=== PATIENT | female | born 1955 | race Caucasian/White ===

== ENCOUNTER → 2017-11-10 | Outpatient (CLI) | payer BC, OTHER ==
[~2017-11-10] VITALS: Ht 162.6 cm; Wt 81.6 kg
[~2017-11-10] MED LIST: ASPIRIN325 PO; GABAPENTIN 100100 MG PO; GABAPENTIN100 MG PO; HYDROCHLOROTHIA25 M2 PO; NEURONTIN 300300 M1 PO; NEURONTIN100 MG PO; QUINAPRIL HCL40 MG PO; TOPROL XL200 MG PO; VERAPAMIL E.R240 M1 PO; VERAPAMIL ER180 MG PO; VITAMIN D5000 UNIT PO; ZETIA10 MG PO
--- NOTE | ~2017-11-10 | HPC ---
[facility] [address] [place] [address] PAIN MANAGEMENT CONSULTATION Name: SARBJIT LIAO [id number] Admission: 11/10/17 Attend Phys: Alejandra Mosley MD Discharge: Date of : 51 Report #: [id number] THIS REPORT FOR: //name// CC: Jenny Oliveira MD DATE OF SERVICE: 11/10/2017 FOLLOWUP COMPLAINT: The pain has improved with the medication, but I am still having some areas of over right ankle. 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 It involves her right ankle. As you may recall, she has been having this pain since 2016. It involves her right ankle. Notes that light touch had been problematic. She notes that since starting gabapentin that there is some change in her discomfort. It was a 5. She rates it as a 2-3 at this juncture. It involves the top of her foot where her cuff of her pants rub and this area is hypersensitive to touch. Sleeps without covers touch this area. She continues to be active. She is having no complications from the gabapentin. She was taking 300 mg initially. She felt that this caused her to feel a little bit "drunk and awkward." Decreasing the dose to 100 mg tablets has been more efficacious. ALLERGIES: No known drug allergies. MEDICATIONS: 1. Gabapentin 100 mg tablets 1 p.o. t.i.d. to b.i.d. 2. Vitamin D. 3. Aspirin 325 mg. 4. Zetia 10 mg. 5. Quinapril 40 mg. 6. Verapamil 180 mg. 7. Hydrochlorothiazide 25 mg. PHYSICAL EXAMINATION: VITAL SIGNS: Blood pressure 155/88, pulse 89, respiratory rate is 16, room air saturations 100, height 5 feet 4 inches, weight 180 pounds, BMI is 30. The patient has not fallen since we saw her last. GENERAL: The patient is well developed, in no acute distress. HEENT: Head: Normocephalic, atraumatic. Eyes: Nonicteric. Ears: Grossly normal hearing. Nose: No deformities or discharge. EXTREMITIES: The patient notes some continued hyperesthesia involving the anterior portion of her right ankle on the top. This [place] [address] PAIN MANAGEMENT CONSULTATION Name: SARBJIT LIAO [facility] [id number] Admission: 11/10/17 Attend Phys: Alejandra Mosley MD Discharge: Date of : 53 Report #: [id number] sensitive than prior to starting her medications. IMPRESSION: 1. Probable complex regional pain syndrome and balls in the right foot and ankle -- improving. 2. Hypertension. 3. Osteoarthritis of her hands. RECOMMENDATIONS: We discussed treatment options with the patient. We will continue to use gabapentin. We will increase this as she is able to tolerate it. We explained that she should not have feelings of being confused, drunk or any complications with it. We should slowly titrate the dose over a longer period of time. The patient will continue with his current medical regimen. A script for her medications has been rewritten. She will follow up in the near future. We hope she continues to improve. <ELECTRONICALLY SIGNED> By: Alejandra Mosley MD 11/26/17 1332 [id number] Alejandra Mosley MD /[facility]
[2017-11-10 08:30] VITALS: BP 155/88
== END ==
LOC: PAIN 06:18
DX: M25.571 Pain in right ankle and joints of right foot (principal); I10 Essential (primary) hypertension; M19.042 Primary osteoarthritis, left hand; M19.041 Primary osteoarthritis, right hand

== ENCOUNTER → 2018-01-14 | Outpatient (CLI) | payer BC, OTHER ==
[~2018-01-14] VITALS: Ht 134.6 cm; Wt 79.7 kg
[~2018-01-14] MED LIST changes: -GABAPENTIN 100100 MG PO; -GABAPENTIN100 MG PO; -TOPROL XL200 MG PO; -VERAPAMIL E.R240 M1 PO
--- NOTE | ~2018-01-14 | HPC ---
[facility] [address] [place] [address] PAIN MANAGEMENT CONSULTATION Name: SARBJIT LIAO Room #: REG [facility].#: [id number] Admission: 01/14/18 Attend Phys: Alejandra Mosley MD Discharge: Date of : 53 Report #: [id number] THIS REPORT FOR: //name// CC: Jenny Oliveira MD DATE OF SERVICE: 01/14/2018 FOLLOWUP COMPLAINT: "The pain is better and is not as widespread on my ankle." FOLLOWUP HISTORY: The patient is a 62-year-old female who has been seen in the pain clinic because of pain and discomfort involving her right ankle. There is some question as to whether or not she has been having problems with reflex sympathetic dystrophy. With her current use of gabapentin, she has noticed a decreasing area of discomfort. Some of the light allodynia type touch has improved. She has had no complications from use of her current medication regimen. She thinks that there is still some sensation to "mechanical stimulation of this." Overall, things are going reasonably well and she rates it as a 1/10. She feels that the current medical regimen is working reasonably well and would like to continue that dose. ALLERGIES: No known drug allergies. REVIEW OF MEDICATIONS: Gabapentin 100 mg 1 p.o. t.i.d. to b.i.d., vitamin D, aspirin 325 mg, Zetia 10 mg, quinapril 40 mg, verapamil 180 mg, hydrochlorothiazide 25 mg. PAIN CLINIC ASSESSMENT: 1. History of osteoarthritis. The patient is not being treated for osteoarthritis or rheumatoid arthritis. Discomfort in her hands. 2. GENERAL: Height 5 feet 4 inches, weight 175 pounds, BMI 44. 3. VITAL SIGNS: Blood pressure 155/72, pulse 82, respiratory rate 16, room air saturation 97%. 4. Pain intensity 11/03. 5. Fall risk. The patient has not fallen in the last 3 months. 6. Blood thinner. The patient is not on a blood thinner 7. History of hypertension. The patient is not being treated for hypertension. 10. Opioid therapy. The patient is not receiving opioid therapy on a regular basis. 11. Risk assessment tool. 12. Functional assessment tool. 13. Recreational drug use. Denies recreational drug use. 14. Tobacco: The patient denies use of tobacco. She has never smoked. 15. Alcohol use. The patient does on occasion use of alcoholic drink and [address] [address] PAIN MANAGEMENT CONSULTATION Name: SARBJIT LIAO Room #: REG CLI [facility]#: [id number] Admission: 01/14/18 Attend Phys: Alejandra Mosley MD Discharge: Date of : 53 Report #: [id number] alcoholic beverage. PHYSICAL EXAMINATION: GENERAL: The patient is a well-developed, well-nourished white female. She appears her stated age. Alert and oriented x 3. Affect is appropriate. HEENT: Normocephalic, atraumatic. Extraocular eye muscles intact. No complaints of nasal problems. NECK: Without adenopathy or JVD. HEART: Regular rate. ABDOMEN: Nontender. Upper extremity judged to be 5/5 for the major upper muscles in the upper extremity. [employer] strength is 5/5. MUSCULOSKELETAL: Normal without significant scoliosis, kyphosis or lordosis, low back area muscles and lower extremity judged to be 5/5 for the major muscle groups with symmetry. No neurological changes. The patient does have pain and discomfort in the dorsum of her right foot. This has been improving. The area of irritation has decreased. Does note some increased pain with mechanical stimulation, but less so with light touch to the affected area. IMPRESSION: 1. Complex regional pain syndrome, has decreased in the right foot with use of current medical regimen of gabapentin. 2. Hypertension. 3. Osteoarthritis in her hands. RECOMMENDATIONS: We discussed treatment options with the patient. At this juncture, things are going reasonably well. We will continue with the gabapentin medication. She will call us if she has any problems with it. She feels overall that things are going reasonably well. She is able to accomplish activities of daily living without significant problems. She rates her pain as a 1/10. Overall, I think things are going reasonably well and she will call us if she has any concerns. <ELECTRONICALLY SIGNED> By: Alejandra Mosley MD 01/26/18 0816 [id number] Alejandra Mosley MD /[facility]
[2018-01-14 08:37] VITALS: BP 155/72
== END ==
LOC: PAIN 06:51
DX: I10 Essential (primary) hypertension (principal); G90.521 Complex regional pain syndrome I of right lower limb; M19.042 Primary osteoarthritis, left hand; M19.041 Primary osteoarthritis, right hand

== ENCOUNTER → 2018-08-31 | Outpatient (CLI) | payer BC, OTHER ==
[~2018-08-31] VITALS: Ht 162.6 cm; Wt 81.6 kg
[~2018-08-31] MED LIST changes: +GABAPENTIN 100100 MG PO; +GABAPENTIN100 MG PO; +TOPROL XL200 MG PO; +VERAPAMIL E.R240 M1 PO
--- NOTE | ~2018-08-31 | HPC ---
[facility] [address] [place] [address] PAIN MANAGEMENT CONSULTATION Name: SARBJIT LIAO Room #: REG [facility] Camryn#: [id number] Admission: 08/31/18 Attend Phys: Kristine Hunter Discharge: Date of : 53 Report #: [id number] THIS REPORT FOR: //name// CC: Kristine CRUZ DATE OF SERVICE: 08/31/2018 CHIEF COMPLAINT: Complex regional pain syndrome in her right foot. HISTORY OF PRESENT ILLNESS: This is a very pleasant 62-year-old female who has been seen in the pain clinic in the past for pain and discomfort in her right ankle. She has been diagnosed in the past with reflex sympathetic dystrophy. She does use current dose of gabapentin 100 mg tablets, she takes 1 in the morning and 2 at night. She tells me that that significantly does help her right ankle pain. She tells me since we have last seen her that she is now able to tolerate shoes on her right ankle, leg and some sheets do not bother her as much, certain fabric does still bother her at night and sometimes has difficulty sleeping as a result of this. The patient does have an AFO brace on her right foot currently. She tells me her pain score today is a 5/10, worse with walking, swelling or sitting too long. It is achy sensation. She tells me that she recently had the flu and was unable to take any of her medicines for about 2 days and her pain had increased during that time. Usually, it is better controlled than her current 5/10. She returns today for followup for just her medications. ALLERGIES: HYDROCODONE. CURRENT MEDICATIONS: Toprol 200 daily, verapamil 240 mg daily, gabapentin 100 mg tablets 3 tablets a day, vitamin D3, aspirin 325 daily, Zetia 10 mg daily, quinapril 40 mg daily, hydrochlorothiazide 25 mg daily. The patient's PQRS: 1. The patient has a history of osteoarthritis in her lower extremities and denies rheumatoid arthritis. 2. Height is 5 feet 4 inches, weight 180, BMI is 30.9. 3. Vital signs, blood pressure 168/81, pulse 69, respiratory rate 16 and oxygen sat is 98%. 4. Pain score is 5/10. 5. Fall risk. Denies dizziness. Does not need help walking or standing and has not fallen in the last 3 months. 6. No blood thinners. Does have a history of hypertension. 7. Her opioid therapy is negative. She does not take narcotics. 8. The patient's risk assessment tool is low. Her functional assessment is [address] [address] PAIN MANAGEMENT CONSULTATION Name: SARBJIT LIAO Lorna [facility] [id number] Admission: 08/31/18 Attend Phys: Kristine Hunter Discharge: Date of : 51 Report #: [id number] 50/70. 9. Recreational drug use. The patient denies. She is not a smoker and occasionally drinks alcohol. We did check [place] [facility], but the patient is not on any opioids, so they were negative. OBJECTIVE: GENERAL: The patient is a well-developed, well-nourished white female, appears her stated age. Alert and orientated. Affect is appropriate. HEENT: Normocephalic, atraumatic. Extraocular eye muscles are intact. NECK: Without adenopathy or JVD. ABDOMEN: Nontender. MUSCULOSKELETAL: Upper extremity judged to be 5/5 in upper muscle groups in her upper extremities. She is negative for scoliosis, kyphosis or lordosis. Her lower extremity strength judged to be 5/5 on the left, 4/5 on the right. Does have some discomfort in her dorsum of her right foot, is improving. Less sensitive to light touch in her right foot. Does have some light allodynia that has decreased. IMPRESSION: 1. Complex regional pain syndrome of the right lower extremity. 2. Hypertension. 3. Osteoarthritis. PLAN: 1. The patient returns to the pain clinic today for refill of her gabapentin. The patient tells me that she is very well controlled, taking 1 tablet in the morning and 2 tablets around 9:00 p.m. at night. The patient does not complain of any daytime cognitive issues now that she is stabilized on her Neurontin dose. The patient would like a refill. I talked to the patient about a 90-day refill, which her pharmacy does fill. We have elected to give her Neurontin 100 mg capsules 3 times a day, quantity #270 with 1 additional refill. 2. The patient can follow up with our office again in 6 months' time. It was discussed with her that if her primary care doctor is willing to write for this medicine that she can get refills from her. 3. The patient is seen in collaboration with Dr. Jorge Mosley. <ELECTRONICALLY SIGNED> By: Kristine Hunter 09/01/18 0716 [id number] [id number] Kristine Hunter /jacki
[2018-08-31 08:18] VITALS: BP 168/81
== END ==
LOC: PAIN 06:57
DX: G90.50 Complex regional pain syndrome I, unspecified (principal); I10 Essential (primary) hypertension; M19.90 Unspecified osteoarthritis, unspecified site

== ENCOUNTER → 2018-12-13 | Outpatient (CLI) | payer OTHER ==
[~2018-12-13] VITALS: Ht 162.6 cm; Wt 82.6 kg
[2018-12-13 09:26] VITALS: BP 146/87
--- NOTE | 2018-12-13 09:38 | NUR ---
Pain Clinic Assessment: 1. History of Osteoarthritis: B/L HANDS LEFT TOES B/L ANKLES B/L KNEES History of Rheumatoid Arthritis: Not Applicable 2. Height: 5 ft. 4 in. 162.6 cm. Weight: 182.0 lb. oz. 82.555 kg. Patient's BMI: 31.2 3. Vital Signs: BP: 146/87 Pulse: 65 Resp: 20 Temp: 02 Sat: 98 ECG Mon: 4. Pain Intensity: 0-AT REST,3-WALKING 5. Fall Risk: Dizziness: N Needs help standing or walking: N Fallen in the last 3 months: N Fall risk comments: 6. Patient on Blood Thinner: None 7. History of Hypertension: Y 8. Opioid Therapy greater than 6 weeks: N Opiate Contract Signed: 9. Risk Assessment Tool Provided: GABY 10. Functional Assessment Tool: 50 11. Recreational Drug Use: Never Drug Type: Tobacco Use: Never Smoker Tobacco Type: Amount or Packs/day: How Many Years: Alcohol Use: Yes Frequency: Monthly Quant: 1
--- NOTE | 2018-12-15 14:14 | HPC ---
[facility] [address] [place] [address] PAIN MANAGEMENT CONSULTATION Name: SARBJIT LIAO [facility]: [facility] [id number] Admission: 12/13/18 ������������������ Attend Phys: Kristine Hunter Discharge: ������������������ Date of : 51 Report #: [id number] THIS REPORT FOR: //name// CC: Kristine Myrick DATE OF SERVICE: 12/13/2018 CHIEF COMPLAINT: Complex regional pain syndrome in her right foot. HISTORY OF PRESENT ILLNESS: This is a very pleasant 63-year-old female who has been seen in the pain clinic in the past for pain in her right ankle. She was diagnosed in the past with reflex sympathetic dystrophy. She currently takes gabapentin 100 mg tablet; she takes 1 in the morning and 2 at night. She tells me that she has been doing really well on this medication. Her pain is 0 today at rest and 3/10 when she is walking. She does wear ASO brace on her ankle when she is walking. The patient does complain of some swelling in her feet bilaterally. The patient does not think it has to do with her medications. She thinks that is more related to weather changes. She tells me that she is doing reasonably well with this medication and would like to continue it. ALLERGIES: HYDROCODONE. CURRENT MEDICATIONS: Gabapentin 100 mg in the a.m. and 2 at night, Toprol-XL 200 mg daily, verapamil ER 240 mg daily, vitamin D3 daily, aspirin 325 mg daily, Zetia 10 mg daily, quinapril 40 mg daily, hydrochlorothiazide 25 mg daily. PQRS: 1. She has a history of osteoarthritis in her lower extremities and in her bilateral hands. Denies rheumatoid arthritis. 2. Height is 5 feet 4 inches, weight is 182. BMI is 31. 3. Vital signs: Blood pressure 146/87, pulse is 65, respirations 20, oxygen sat is 98%. 4. Pain score 0/10 at rest, 3/10 at walking. 5. Fall risk. She denies dizziness. Does not need help walking or standing, has not fallen in the last 3 months. 6. The patient is not on any blood thinners. She does have a history of hypertension. 7. Opioid therapy is greater than 6 weeks. Now she does not take opioids from us. Her risk assessment tool is low. Her functional assessment is 50/70. 8. Recreational drug use, she denies. She is not a smoker and occasionally drink alcohol. We did check the prescription monitoring system. The patient does not fill narcotics from us. She did fill a narcotic a year ago. The patient tells me she does safeguard her medications. PHYSICAL EXAMINATION: [facility] [address] [place] [address] PAIN MANAGEMENT CONSULTATION Name: SARBJIT LIAO Lorna Room #: REG [facility]#: [id number] Admission: 12/13/18 ������������������ Attend Phys: Kristine Hunter Discharge: ������������������ Date of : 51 Report #: [id number] GENERAL: This is a well-developed, well-nourished white female, who appears her stated age. She is alert and orientated and affect is appropriate. HEENT: Normocephalic, atraumatic. Extraocular eye muscles are intact. Mucous membranes are moist. NECK: Without adenopathy or JVD. MUSCULOSKELETAL: Upper extremity strength judged to be 5/5 in all major muscle groups. She is negative for scoliosis, lordosis or kyphosis. She complains of some discomfort in her right foot today, is minimal since she has not been walking, does have some light allodynia that is present on her right foot as well. Lower extremity strength judged to be 5/5 in lower muscle groups in her lower extremities. IMPRESSION: 1. Complex regional pain syndrome of her right lower extremity. 2. Hypertension. 3. Osteoarthritis. PLAN: 1. We discussed treatment options with the patient today. She tells me she is very well controlled with her gabapentin. She takes one tablet in the morning and 2 in the evening for a quantity of 3 tablets a day. She tells me that she is very stable on this medicine and we elected to give her a 90-day supply, quantity 270 with 3 additional refills. This is 1 year supply. At that time, she may follow up with Dr. Jorge Mosley for an appointment here or she may get this medication from her primary care doctor. 2. We discussed if she does have increase in her symptoms or her pain changes, then she could return on as needed basis to us and we will make adjustments as needed. The patient verbalizes understanding of this. 4. The patient is seen in collaboration today with Dr. Isaak Gallardo and he saw pt as well today. ��������������������������������������������� <ELECTRONICALLY SIGNED> ���������������������������������������� By: Kristine Hunter ��������������������������������������������� 12/15/18 1414 1045 1824 Kristine Hunter /jacki
== END ==
LOC: PAIN 06:47
DX: M79.671 Pain in right foot (principal); G89.4 Chronic pain syndrome; I10 Essential (primary) hypertension; M19.90 Unspecified osteoarthritis, unspecified site; Z88.8 Allergy status to other drugs, medicaments and biological substances; Z79.899 Other long term (current) drug therapy

== ENCOUNTER → 2019-08-11 | Outpatient (CLI) | payer OTHER ==
[~2019-08-11] VITALS: Ht 162.6 cm; Wt 85.3 kg
[~2019-08-11] MED LIST changes: +NEURONTIN300 MG PO
[2019-08-11 08:12] VITALS: BP 152/87
--- NOTE | 2019-08-11 08:21 | NUR ---
Pain Clinic Assessment: 1. History of Osteoarthritis: B/L HANDS LEFT TOES B/L ANKLES B/L KNEES History of Rheumatoid Arthritis: Not Applicable 2. Height: 5 ft. 4 in. 162.6 cm. Weight: 188.0 lb. oz. 85.276 kg. Patient's BMI: 32.3 3. Vital Signs: BP: 152/87 Pulse: 70 Resp: 16 Temp: 02 Sat: 97 ECG Mon: 4. Pain Intensity: 2 5. Fall Risk: Dizziness: N Needs help standing or walking: N Fallen in the last 3 months: N Fall risk comments: 6. Patient on Blood Thinner: None 7. History of Hypertension: Y 8. Opioid Therapy greater than 6 weeks: N Opiate Contract Signed: 9. Risk Assessment Tool Provided: GABY 10. Functional Assessment Tool: 11. Recreational Drug Use: Never Drug Type: Tobacco Use: Never Smoker Tobacco Type: Amount or Packs/day: How Many Years: Alcohol Use: Yes Frequency: Quant:
--- NOTE | 2019-08-14 08:18 | HPC ---
[facility] [address] [place] [address] PAIN MANAGEMENT CONSULTATION Name: SARBJIT LIAO Lorna Room #: REG [facility] Camryn#: [id number] Admission: 08/11/19 Attend Phys: Kristine Hunter Discharge: Date of : 51 Report #: [id number] THIS REPORT FOR: //name// CC: Kristine Myrick DATE OF SERVICE: 08/11/2019 CHIEF COMPLAINT: Complex regional pain syndrome of her right foot. HISTORY OF PRESENT ILLNESS: This is a very pleasant 63-year-old female who returns to the pain clinic today for refill of her gabapentin that she uses to help treat her complex regional pain syndrome of her right foot. She explains to me that her pain score is 2/10. Recently, she had increased her gabapentin with some previous 300 mg tablets that she had at home and feels that is beneficial in helping her sleep better at night and helping her pain be better controlled. She continues to 100 mg of Neurontin in the morning. She would like refills of this dose of gabapentin. She feels that most of her pain is worse with walking and at bedtime that wearing a brace as well as resting and using her medication are very helpful. The patient tells me she has been having some issues with her left knee and has been going to physical therapy and trying to do the exercises at home. She does travel quite a bit, so she is not able to complete a full course of physical therapy, but is trying to be as active as possible with her exercises. ALLERGIES: HYDROCODONE. CURRENT LIST OF MEDICATIONS: Gabapentin 100 mg in the morning, gabapentin 300 mg at night, Toprol-XL 200 mg daily, verapamil 240 mg daily, vitamin D, aspirin, Zetia 10 mg daily, quinapril 40 mg daily and hydrochlorothiazide 25 mg daily. PQRS: 1. She has osteoarthritis in her hands, ankles and knees. Denies any rheumatoid arthritis. 2. Height is 5 feet 4 inches, weight is 188, BMI is 32. 3. Vital signs, blood pressure 152/87, pulse is 70, respirations 16, oxygen sat is 97. 4. Pain score is 2/10. 5. Denies dizziness, does not need help walking or standing, has not fallen in the last 3 months. 6. The patient is not on any blood thinners, but does take medicine for hypertension. 7. Opiate therapy is greater than 6 weeks; therefore, no opioids are taken. Her risk assessment tool is low. Functional assessment is 50/70. 8. Recreational drug use, she denies. [place] [address] PAIN MANAGEMENT CONSULTATION Name: SARBJIT LIAO [facility]: [facility] [id number] Admission: 08/11/19 Attend Phys: Kristine Hunter Discharge: Date of : 51 Report #: [id number] drinks alcohol. We did check the prescription monitoring system. Again, the patient is not on any opioids, but does fill gabapentin on a scheduled basis. PHYSICAL EXAMINATION: GENERAL: This is a well-developed, well-nourished white female who appears her stated age, placing her current pain score 2/10. She is alert and orientated. HEENT: Normocephalic, atraumatic. Extraocular eye muscles are intact. Mucous membranes are moist. NECK: Without adenopathy or JVD. MUSCULOSKELETAL: She is negative for scoliosis, kyphosis or lordosis. Her lower extremity strength judged to be 5/5 in all major muscle groups. She has 1+ edema in her right lower extremity. Her right foot is sensitive to light touch. She does have light allodynia that has decreased. IMPRESSION: 1. Complex regional pain syndrome of the right lower extremity. 2. Hypertension. 3. Osteoarthritis. PLAN: 1. We discussed treatment options with the patient today. Originally, we had tried to have the patient take gabapentin 300 mg 3 times a day. She was unable to tolerate this dose and was started on a lower dose over the past year. She has been able to increase her bedtime dose to 300 and continuing 100 mg of Neurontin in the morning. She would like refills of these medications. She finds this very beneficial in aiding with her sleep and decreasing her pain in her right extremity. Scripts are given today for gabapentin 300 mg at bedtime, #90 with 3 additional refills, and gabapentin 100 every day, #90 with 3 additional refills. This is a year supply of her gabapentin. 2. I explained to the patient that she may get this medicine from Dr. Myrick next year, if she needs to or we will be glad to continue writing for her as well. 3. The patient instructed to call for an appointment if in a year or if symptoms change and she needs to come and see us sooner. The patient is seen today in collaboration with Dr. Jorge Mosley. <ELECTRONICALLY SIGNED> By: Kristine Hunter 08/14/19 0818 [id number] [id number] Kristine Hunter /nt
== END ==
LOC: PAIN 06:52
DX: M79.671 Pain in right foot (principal); M19.90 Unspecified osteoarthritis, unspecified site; I10 Essential (primary) hypertension; Z88.8 Allergy status to other drugs, medicaments and biological substances; Z79.899 Other long term (current) drug therapy